=== PATIENT | male | born 1950 | race African-American/Black ===

== ENCOUNTER → 2017-10-03 | Day surgery (SDC) | payer OTHER ==
[~2017-10-03] MED LIST: ANDROGEL1.25 GM TOP; ASPIR 8181 MG PO; CENTRUM SILVER1 EAC2 PO; CIALIS10 MG PO; ELIQUIS2.5 MG PO; FISH OIL 1,001000 MG PO; GLUCOSAMINE HC500 MG PO; HYDROCHLOROTHIA50 MG PO; HYDROCODONE-AP1 EAC6 PO; NORVASC5 MG PO; PROPAFENONE 15150 MG PO; VIAGRA25 MG PO; ZOVIRAX200 MG PO
[2017-10-03 12:12] LABS: HEMATOCRIT 43.9 % (42.0-52.0); HEMOGLOBIN 14.6 gm/dL (14.0-18.0); MCH 30.4 pg (26.0-34.0); MCHC 33.1 g/dL (28.0-37.0); MCV 91.6 fL (80.0-100.0); MPV 8.4 fl. (7.2-11.1); RBC 4.8 mil/uL (4.50-6.00); RDW-CV 13.8 % (10.5-14.5); WBC 4.4 thou/uL (4.0-11.0)
[2017-10-03 12:19] LABS: CALCIUM 8.9 mg/dL (8.5-10.1); CREATININE 1.4 mg/dL (0.6-1.3); POTASSIUM 3.5 mmol/L (3.5-5.1)
--- NOTE | 2017-10-03 13:01 | H ---
[place] [address] HISTORY AND PHYSICAL Name: BULMARO ENRIQUEZ Room: [facility].#: [id number] Admission: 10/03/17 Attend Phys: Stephy Marrero MD Discharge: Date of : 50 Report #: [id number] THIS REPORT FOR: //name// CC: Jerson Marrero DATE OF SERVICE: 10/03/2017 ADMITTING DIAGNOSIS: Left inguinal hernia. HISTORY OF PRESENT ILLNESS: The patient is a 67-year-old black male who presents with an enlarging left inguinal crease bulge. He was evaluated and found to have a left inguinal hernia, was referred for surgical management. PAST MEDICAL HISTORY: Includes hypertension, prostate cancer. PAST SURGICAL HISTORY: Includes a right inguinal hernia in 2011, right knee surgery in 2011 and a prostatectomy in 2003. SOCIAL HISTORY: He does not smoke or drink. REVIEW OF SYSTEMS: Otherwise unremarkable. CURRENT MEDICATIONS: Include Norvasc, AndroGel 1.25 grams transdermal, Viagra, hydrochlorothiazide, Zovirax. ALLERGIES: He reports no known drug allergies. PHYSICAL EXAMINATION: GENERAL: He is a well-developed, well-nourished male. HEAD, EYES, EARS, NOSE, THROAT: Unremarkable. NECK: Supple. LUNGS: Clear. CARDIAC: Regular rate and rhythm without murmur. ABDOMEN: Benign. In his groin area on the right, there is a healed right inguinal scar and on the left side he has a lower midline incision, and then on the left side he has a palpable reducible left inguinal hernia. EXTREMITIES: Noted no varicosities or pitting edema. IMPRESSION: Left inguinal hernia. I have outlined open inguinal hernia repair with mesh, its risks and benefits, answered his questions. He understands and wishes to proceed. <ELECTRONICALLY SIGNED> By: Stephy Marrero MD 10/03/17 1301 1556 [id number] Marrero MD /nt
--- NOTE | 2017-10-03 15:30 | EKG ---
[place] [address] ELECTROCARDIOGRAM REPORT Name: MINABULMARO Borges Room: [facility]#: [id number] Admission: 10/03/17 Attend Phys: Stephy Marrero MD Discharge: Date of : 50 Report #: [id number] THIS REPORT FOR: //name// [facility] [place] Test Date: 2017-10-03 Test Time: 12:42:36 Pat Name: BULMARO ENRIQUEZ Department: Room: Gender: M Mechanical Design Drafter: : 1950 Requested By: Stephy Marrero Order Number: [id number] Reading MD: Mj Ruvalcaba Measurements Intervals [place] Rate: 42 P: 57 NJ: 342 QRS: 10 QRSD: 106 T: -45 QT: 503 QTc: 421 Interpretive Statements Sinus bradycardia Atrial premature complexes in couplets Prolonged [place] interval Abnormal R-wave progression, early transition Left ventricular hypertrophy Abnrm T, probable ischemia, anterolateral lds Compared to ECG 05/29/2015 22:29:02 Atrial premature complex(es) now present Sinus rhythm no longer present T-wave abnormality no longer present Possible ischemia still present Electronically Signed On 10-03-2017 15:29:47 [employer] MANA[employer] by Mj Ruvalcaba [email or web address] <ELECTRONICALLY SIGNED> By: Mj Ruvalcaba MD, FACC 10/03/17 1529 1242 1242 Mj Ruvalcaba MD, FAC /EPI
--- NOTE | 2017-10-09 13:40 | OP ---
[address] [address] OPERATIVE REPORT Name: BULMARO ENRIQUEZ Room: [facility].#: [id number] Admission: 10/03/17 Attend Phys: Stephy Marrero MD Discharge: Date of : 50 Report #: [id number] THIS REPORT FOR: //name// CC: Jerson Marrero DATE OF SERVICE: 10/03/2017 PREOPERATIVE DIAGNOSIS: Left inguinal hernia. POSTOPERATIVE DIAGNOSIS: Left indirect inguinal hernia. OPERATIVE PROCEDURE: Left inguinal herniorrhaphy with ProGrip sheet mesh and Herlinda repair. ANESTHESIA: Laryngeal mask with 0.5% Marcaine infiltrated into the wound site. OPERATIVE PROCEDURE: After the patient was placed under laryngeal mask anesthesia, the patient's left inguinal crease was carefully prepped and draped in the usual sterile fashion and a timeout taken. Antibiotics administered. We began by making a transverse incision parallel to the inguinal ligament, approximately 6 cm with a #15 scalpel blade. Pickups and cautery were used to dissect through the subcutaneous fat, Jd's fascia down to the external oblique fibers. A Weitlaner was placed and incision was then placed in the external oblique fibers in their natural direction. The fascia was lifted up with 2 Mosquitoes and the external oblique fibers were opened from the external ring to the internal ring with Metzenbaum scissors. A Weitlaner was placed in the advantage point. The underlying tissues underneath were teased apart. The cord structure was identified and lifted upward and there was a patulous internal ring and a small herniated preperitoneal fat and hernia sac, which was teased off the cord structure with cautery and reduced back into the inguinal floor. A piece of ProGrip mesh was cut in an elliptical fashion with keyhole and placed in the inguinal floor, wrapped around the cord structure and then 6 interrupted 0 Prolene sutures was used to anchor this mesh to the transversalis fascia and the internal oblique musculature until the mesh was fully in place with a good firm opening with a little patch to allow for gravity. Once that was accomplished, those sites were infiltrated with 0.5% Marcaine. I then removed and placed a cord structure directly upon the repair site and then closed the external oblique fibers with a running 3-0 chromic suture. Jd's fascia was reapproximated with interrupted 3-0 chromic sutures and the epidermis was closed with 4-0 PDS suture and then sealed with Dermabond. Estimated blood loss was 5 mL. Sponge and instrument counts correct. [place] [address] OPERATIVE REPORT Name: BULMARO ENRIQUEZ [id number] Admission: 10/03/17 Attend Phys: Stephy Marrero MD Discharge: Date of : 50 Report #: [id number] laryngeal-mask anesthesia and returned to recovery room in satisfactory condition. <ELECTRONICALLY SIGNED> By: Stephy Marrero MD 10/09/17 1340 1406 1650Stephy Marrero MD /nt
== END | disposition home or self-care (01) ==
LOC: M.SUR 06:02
PROVIDERS: Surgery
DX: K40.90 Unilateral inguinal hernia, without obstruction or gangrene, not specified as recurrent (principal); I10 Essential (primary) hypertension; Z85.46 Personal history of malignant neoplasm of prostate; Z79.899 Other long term (current) drug therapy

== ENCOUNTER → 2019-06-21 | Outpatient (CLI) | payer OTHER | LOC: M.LAB 04:48 | DX: E87.6 Hypokalemia (principal) ==

== ENCOUNTER → 2019-06-23 | Outpatient (CLI) | payer OTHER | LOC: M.ULTRA 08:00 | DX: R07.9 Chest pain, unspecified (principal); R10.13 Epigastric pain ==